=== PATIENT | male | born 1935 | race Caucasian/White ===

== ENCOUNTER 2017-10-23 06:40 | Inpatient (IN) | payer MEDICARE, BC ==
[2017-10-23] MEDS ORDERED: IPRATROPIUM/ALBUTEROL (0.5MG/3MG) NEB INH ONE (06:51)
[2017-10-23] MEDS ORDERED: METHYLPREDNISOLONE PF 125MG/VIAL IVP ONE (07:02)
[2017-10-23 07:04] LABS: INFLUENZA A POSITIVE (NEGATIVE); INFLUENZA B NEGATIVE (NEGATIVE)
[2017-10-23] MEDS ORDERED: ACETAMINOPHEN 325 MG TAB PO ONE (07:09)
[2017-10-23] MEDS ORDERED: OSTELTAMIVIR 75 MG CAP PO ONE (07:13)
--- NOTE | 2017-10-23 07:13 | Emergency Department Record ---
History of Present Illness - General Chief complaint: Flu Like Symptoms Stated complaint: FLU LIKE SYMPTOMS Time Seen by Provider: 10/23/17 07:02 Source: Patient Mode of Arrival: Ambulatory - History of Present Illness Initial comments: The patient has had 3 days of a bad cough and loose/diarrhea stools. He has a fever and FAB/SOB and has dyspnea He vomited once earlier this morning, and took tylenol around 2 a.m. for his fever. He has chronic atrial fibrillationfor which he takes HCTZ, sotalol and xaralto. Onset/Timin -: Days(s) Location: Generalized Severity: Mild Consistency: Constant Improves with: None Worsens with: None Associated Symptoms: Fever/chills, Nausea/vomiting - Jose J Coma Scale Eye Response: (4) Open spontaneously Motor Response: (6) Obeys commands Verbal Response: (5) Oriented Jose J Total: 15 - Related Data Home Medications Medication Instructions Recorded Confirmed Last Taken Hydrochlorothiazide [Hctz] 1 tab PO DAILY 10/23/17 10/23/17 Unknown Rivaroxaban [Xarelto] 1 mg PO DAILY 10/23/17 10/23/17 Unknown Sotalol HCl [Sotalol] 1 tab PO DAILY 10/23/17 10/23/17 Unknown Allergies Allergy/AdvReac Type Severity Reaction Status Date / Time No Known Drug Allergies Allergy Verified 10/23/17 06:51 Travel Screening - Travel/Exposure Within Last 30 Days Have you traveled within the last 30 days?: No - Travel/Exposure Within Last Year Have you traveled outside the [place] in the last year?: No - Additonal Travel Details Have you been exposed to anyone with a communicable illness?: No - Travel Symptoms Symptom Screening: None Past Medical History - SOCIAL HISTORY Smoking Status: Never smoker Alcohol Use: None Drug Use: None - RESPIRATORY Hx Respiratory Disorders: No - CARDIOVASCULAR Hx Cardio Disorders: Yes Hx Hypertension: Yes Comment:: a-fib - NEURO Hx Neuro Disorders: No - GI Hx GI Disorders: No - Hx Genitourinary Disorders: No - ENDOCRINE Hx Endocrine Disorders: No - MUSCULOSKELETAL Hx Musculoskeletal Disorders: No - PSYCH Hx Psych Problems: No - HEMATOLOGY/ONCOLOGY Hx Hematology/Oncology Disorders: No Hx Cancer: Yes (skin) Hx Chemotherapy: No Hx Radiation Therapy: No Family Medical History Any Significant Family History?: No Physical Exam - General General Appearance: Alert, Oriented x3, Cooperative, Moderate distress - Head Head exam: Normal inspection - Eye Eye exam: Normal appearance, PERRL, EOMI Pupils: Normal accommodation - ENT ENT exam: Normal exam, Mucous membranes moist, Normal external ear exam, Normal orophraynx, TM's normal bilaterally Ear exam: Normal external inspection. negative: External canal tenderness Nasal Exam: Normal inspection, Discharge (nasal drainage present). negative: Sinus tenderness Mouth exam: Normal external inspection, Tongue normal Teeth exam: Normal inspection. negative: Dental caries Throat exam: Normal inspection. negative: Tonsillar erythema, Tonsillar exudate - Neck Neck exam: Normal inspection, Full ROM. negative: Lymphadenopathy, Meningismus , Tenderness - Respiratory Respiratory exam: Decreased breath sounds, Prolonged expiratory, Respiratory distress, Wheezes (expiratory) - Cardiovascular Cardiovascular Exam: Normal heart sounds, Irregular rhythm, Tachycardia - GI/Abdominal GI/Abdominal exam: Soft. negative: Tenderness - Rectal Rectal exam: Deferred - exam: Deferred - Extremities Extremities exam: Normal inspection, Full ROM, Normal capillary refill. negative: Calf tenderness, Pedal edema, Tenderness - Back Back exam: Reports: Normal inspection, Full ROM. Denies: CVA tenderness (R), CVA tenderness (L), Muscle spasm, Rash noted, Tenderness - Neurological Neurological exam: Alert, Normal gait, Oriented X3, Reflexes normal - Psychiatric Psychiatric exam: Normal affect, Normal mood - Skin Skin exam: Dry, Intact, Normal color, Warm Course Vital Signs 10/23/17 10/23/17 10/23/17 06:41 06:56 06:59 Temperature 99.2 F 100.1 F H Pulse Rate 116 H Pulse Rate [ 117 H 100 H Pulse Ox Probe] Respiratory 28 H 28 H 28 H Rate Blood Pressure 150/102 Pulse Ox 89 L 93 L 92 L - Reevaluation(s) Reevaluation #1: 10/23/17 07:29 Tightness decreased with nebulizer, as wheezing increased. Tachycardic rate of f a.fib on monitor Reevaluation #2: Patient is tachycardic at rest, has breathless speech, and arrived hypoxic. He is will to be admitted here. He states his PCP was Dr. Erazo, but he doesn' t know now who it i. 10/23/17 08:06 Reevaluation #3: DW Dr. Vazquez who accepts patient for full admission on telemetry. 10/23/17 08:20 Medical Decision Making - Management Options MDM Management: Additional Work-up Planned (e.g. ADM/Transfer/OP Study) ( Admission to Dr. Vazquez) - Data Complexity MDM Data: Labs Ordered and/or Reviewed, X-Ray Ordered and/or Reviewed (CXR shows mild streaky stelectasis RML with slight elevation of the righ hemidiaphragm per radiologist.), EKG Ordered and/or Reviewed - Lab Data Result diagrams: 10/23/17 06:55 10/23/17 06:55 - EKG Data -: EKG Interpreted by Me (atrial fibrillation, prsent on old EKG of at 127/ minute, wandering baseline) Disposition Disposition: Admit Clinical Impression: Pneumonia of right middle lobe due to influenza A virus, Chronic atrial fibrillation with rapid ventricular response Dyspnea Qualifiers: Dyspnea type: acute respiratory distress Qualified Code(s): R06.03 - Acute respiratory distress Disposition: Still a Patient at [facility] Decision to Admit: Admit from ER Decision to Admit Date: 10/23/17 Decision to Admit Time: 08:25 Accepting Physician: Dr. Vazquez Time Discussed w/Accepting Physician: 08:25 Condition: (3) Guarded Quality - Quality Measures Quality Measures: N/A - Blood Pressure Screening Does Patient Have Any of the Following: No, Active Dx of HTN Blood Pressure Classification: Hypertensive Reading Systolic Measurement: 150 Diastolic Measurement: 102 Screening for High Blood Pressure: Patient Exclusion, Hx of HTN [[id number]]
[2017-10-23 07:26] LABS: BLOOD UREA NITROGEN 15 mg/dL (8-23); CREATININE 1.2 mg/dL (0.7-1.2); EST GLOMERULAR FILTRATION RATE > 60 mL/min
[2017-10-23 07:27] LABS: TOTAL PROTEIN 7.7 g/dL (6.6-8.7)
[2017-10-23 07:29] LABS: GLUCOSE,RANDOM 106 mg/dL (74-109)
[2017-10-23 07:30] LABS: BASO % 0.5 % (0-6); EOS % 2.8 % (0-6); GRAN % 67.7 % (47-80); HEMATOCRIT 44.2 % (42.0-52.0); HEMOGLOBIN 15.2 gm/dl (14.0-18.0); LYMPH % 17.7 % (16-45); MEAN CELL VOLUME 83.4 fl (81-97); MEAN CORPUSCULAR HEMOGLOBIN 28.7 pg (27-33); MEAN CORPUSCULAR HGB CONC 34.4 g/dl (32-36); MEAN PLATELET VOLUME 9.7 fl (7.4-10.4); MONO % 11.3 % (0-9); PLATELET COUNT 228 K/uL (130-400); WHITE BLOOD COUNT W/O DIFF 5.8 K/uL (4.2-12.2)
[2017-10-23] MEDS ORDERED: 0.9 % SODIUM CHLORIDE 500ML 500 ML IV SCH (07:30)
[2017-10-23 07:32] LABS: ALB/GLOB RATIO 1.1 (1.1-1.8); ALBUMIN 4.1 g/dL (4.0-5.0); ALKALINE PHOSPHATASE 50 U/L (40-129); ALT/SGPT 20 U/L (<41); AST/SGOT 30 U/L (10.0-50.0)
[2017-10-23] MEDS ORDERED: SOTALOL HCL 80 MG TABLET PO SCH (08:15)
[2017-10-23] MEDS ORDERED: CEFTRIAXONE SODIUM 2 GM in 0.9 % SODIUM CHLORIDE 100ML 100 ML IVPB ONE (08:23)
[2017-10-23] MEDS ORDERED: AZITHROMYCIN 500 MG TABLET PO ONE (08:23)
--- NOTE | 2017-10-23 08:27 | RADIOLOGY REPORT ---
EXAM: CHEST, TWO VIEWS HISTORY: COUGH, CONGESTION AND DIFFICULTY IN BREATHING. TECHNIQUE: PA and lateral views of the chest were obtained. Comparison: Two view chest 05/03/10. FINDINGS: The heart size is within normal limits. There is some mild right middle lobe atelectasis or infiltrate with mild elevation of the right hemidiaphragm. The left lung appears expanded and clear. IMPRESSION: MILD STREAKY ATELECTASIS OR INFILTRATE RIGHT MIDDLE LOBE WITH MILD ELEVATION RIGHT HEMIDIAPHRAGM. JOB NUMBER: [id number] MTDD
[2017-10-23] MEDS ORDERED: ACETAMINOPHEN 500 MG TABLET PO PRN (09:01)
[2017-10-23] MEDS ORDERED: METHYLPREDNISOLONE PF 125MG/VIAL IVP SCH (09:01)
[2017-10-23] MEDS ORDERED: 0.9 % SODIUM CHLORIDE 1000ML 1,000 ML IV PRN (09:01)
[2017-10-23] MEDS ORDERED: CEFTRIAXONE SODIUM 1 GM in 0.9 % SODIUM CHLORIDE 100ML 100 ML IVPB SCH (09:01)
[2017-10-23] MEDS ORDERED: ALBUTEROL SULFATE (0.083%) 2.5 MG/3 ML NEB INH SCH (10:00)
[2017-10-23] MEDS ORDERED: RIVAROXABAN 15 MG TABLET PO SCH (10:00)
[2017-10-23] MEDS: HYDROCHLOROTHIAZIDE 12.5 MG CAPSULE PO SCH (10:05)
--- NOTE | 2017-10-23 10:31 | History & Physical ---
History of Present Illness - Date of Service Date of Service for History & Physical: 10/23/17 - History of Present Illness Admitting Diagnosis: Right middle lobe pneumonia; influenza A; dyspnea; chronic atrial fibrillation with rapid rate History of Present Illness: Mr. Vasquez is an 82 y/o male who presents with a 2 day history of chills, fatigue, cough, headache, loss of appetite and diarrhea. The patient says that his symptoms came on suddenly and his who he lives with has not had symptoms and there has not been any recent travel or other sick contacts. He has had is seasonal influenza vaccine and is up to date on his pneumococcal vaccination. On arrival to the ED the patient's influenza screen came back positive for influenza A and he was in atrial fibrillation with a rate of approximately 110-115. Chest xray reported atelectasis with possible right middle lobe infiltrate, however there is no white count or other SIRS criteria met. The patient was started on Tamiflu, antibiotics, IV steroids and fluids. He is admitted for hydration and further observation on cardiac monitoring. Travel Screening - Travel/Exposure Within Last 30 Days Have you traveled within the last 30 days?: No - Travel/Exposure Within Last Year Have you traveled outside the [place] in the last year?: No - Additonal Travel Details Have you been exposed to anyone with a communicable illness?: No - Travel Symptoms Symptom Screening: None Past Medical History - SOCIAL HISTORY Smoking Status: Never smoker Alcohol Use: None Drug Use: None - RESPIRATORY Hx Respiratory Disorders: No - CARDIOVASCULAR Hx Cardio Disorders: Yes Hx Hypertension: Yes Comment:: a-fib - NEURO Hx Neuro Disorders: No - GI Hx GI Disorders: No - Hx Genitourinary Disorders: No - ENDOCRINE Hx Endocrine Disorders: No - MUSCULOSKELETAL Hx Musculoskeletal Disorders: No - PSYCH Hx Psych Problems: No - HEMATOLOGY/ONCOLOGY Hx Hematology/Oncology Disorders: No Hx Cancer: Yes (skin) Hx Chemotherapy: No Hx Radiation Therapy: No Family Medical History Any Significant Family History?: No H&P Meds/Allergies - Allergies Allergies: Allergies Allergy/AdvReac Type Severity Reaction Status Date / Time No Known Drug Allergies Allergy Verified 10/23/17 06:51 - Home Medications Home Medications Medication Instructions Recorded Confirmed Last Taken Hydrochlorothiazide [Hctz] 12.5 mg PO DAILY 10/23/17 10/23/17 Unknown Rivaroxaban [Xarelto] 20 mg PO 1730 10/23/17 10/23/17 Unknown Sotalol HCl [Sotalol] 80 mg PO DAILY 10/23/17 10/23/17 Unknown Tamsulosin HCl [Flomax] 0.4 mg PO QHS 10/23/17 10/23/17 Unknown - Active Medications Active Medications: Current Medications Acetaminophen (Tylenol 500mg Tab) 1,000 mg PO Q6H PRN PRN Reason: PAIN/TEMP Albuterol Sulfate (Ventolin Hfa) 2 puff INH [facility]Q4H.[facility] Azithromycin (Zithromax) 500 mg PO DAILY [facility] Hydrochlorothiazide (Hctz 12.5mg) 12.5 mg PO DAILY [facility] Last Admin: 10/23/17 10:05 Dose: 12.5 mg Sodium Chloride () 1,000 mls @ 100 mls/hr IV .Q10H PRN PRN Reason: LARGE VOLUME IV Ceftriaxone Sodium 1 gm/ (Sodium Chloride) 100 mls @ 100 mls/hr IVPB Q24H [facility] Stop: 10/28/17 09:02 Methylprednisolone Sodium Succinate (Solu-Medrol) 60 mg IVP Q8H [facility] Rivaroxaban (Xarelto) 1 mg PO DAILY [facility] Last Admin: 10/23/17 10:05 Dose: Not Given Sotalol HCl (Betapace) mg PO DAILY [facility] Physical Exam - Vital Signs Vital Signs: Vital Signs - Last 24 Hrs Temp Pulse Pulse Resp BP BP Pulse Ox 10/23/17 09:05 99.1 F 119 H 112 H 18 117/64 124/83 95 - General General Appearance: Alert, Oriented x3, Cooperative, Moderate distress - Head Head exam: Normal inspection - Eye Eye exam: Normal appearance, PERRL, EOMI Pupils: Normal accommodation - ENT ENT exam: Normal exam, Mucous membranes moist, Normal external ear exam, Normal orophraynx, TM's normal bilaterally Ear exam: Normal external inspection. negative: External canal tenderness Nasal Exam: Normal inspection, Discharge (nasal drainage present). negative: Sinus tenderness Mouth exam: Normal external inspection, Tongue normal Teeth exam: Normal inspection. negative: Dental caries Throat exam: Normal inspection. negative: Tonsillar erythema, Tonsillar exudate - Neck Neck exam: Normal inspection, Full ROM. negative: Lymphadenopathy, Meningismus , Tenderness - Respiratory Respiratory exam: Decreased breath sounds, Prolonged expiratory, Respiratory distress, Rhonchi, Wheezes (expiratory) - Cardiovascular Cardiovascular Exam: Normal heart sounds, Irregular rhythm, Tachycardia Peripheral Pulses: 2+: Radial (R) (irregular ), Radial (L), Dorsalis Pedis (R), Dorsalis Pedis (L) - GI/Abdominal GI/Abdominal exam: Soft. negative: Tenderness - Rectal Rectal exam: Deferred - exam: Deferred - Extremities Extremities exam: Normal inspection, Full ROM, Normal capillary refill. negative: Calf tenderness, Pedal edema, Tenderness - Back Back exam: Reports: Normal inspection, Full ROM. Denies: CVA tenderness (R), CVA tenderness (L), Muscle spasm, Rash noted, Tenderness - Neurological Neurological exam: Alert, Normal gait, Oriented X3, Reflexes normal - Psychiatric Psychiatric exam: Normal affect, Normal mood - Skin Skin exam: Dry, Intact, Normal color, Warm Results - Labs Result Diagrams: 10/23/17 06:55 10/23/17 06:55 VTE H&P Assessment - Risk for VTE Risk for VTE: Yes Risk Level: Moderate Risk Assessment Date: 10/23/17 Risk Assessment Time: 10:40 VTE Orders Placed or Will Be Placed: Yes Plan - Inpatient Certification Inpatient Certification: Admit to inpatient care: Based on my medical assessment, after consideration of patient's risk factors (age, co-morbidities and patient presenting symptoms and acuity), I expect that this patient will remain in the hospital greater than or equal to two midnights and that the services needed warrant inpatient care because: Patient Risk Factors: Pneumonia, A. fib Estimated length of stay: The patient may reasonably be expected to be discharged or transferred to a hospital within 96 hours after admission to [facility]. I certify that my determination is in accordance with my understanding of Medicare requirements for reasonable and necessary inpatient services. 10/23/17 10:41 - Detailed Diagnosis and Plan (1) Pneumonia of right middle lobe due to influenza A virus Current Visit: Yes Status: Acute Base Code: J11.00 - FLU DUE TO UNIDENTIFIED FLU VIRUS W UNSP TYPE OF PNEUMONIA Comment: - influenza A positive, CXR reads streaky atelectasis w/ right middle lobe infiltrate. - WBCs 5, no fever, chills, + tachycardia, + wheezing, ronchi - cont tamiflu 75mg BID, IVF @ 100mL/hr, Tylenol PRN, supportive care,d/c antibiotics - contact/droplet precuations (2) Dyspnea Current Visit: Yes Status: Acute Qualifiers: Dyspnea type: acute respiratory distress Qualified Code(s): R06.03 - Acute respiratory distress Base Code: R06.00 - DYSPNEA, UNSPECIFIED Comment: - acute dyspnea as a result of pneumonia - cont respiratory therapy w/ albuterol q4H - d/c IV solumedrol, Prednisone 40mg daily - oxygen therapy PRN to keep sats > 92% (3) Chronic atrial fibrillation with rapid ventricular response Current Visit: Yes Status: Acute Base Code: I48.2 - CHRONIC ATRIAL FIBRILLATION Comment: - ECG: irregular R/R in the 120s, no acute ST-T changes noted. - resume home dose of Sotalol 80mg QD, increase to BID if not controlled, anticoagulation on Xarelto 20mg QD - cont cardic monitoring (4) Hypertension Current Visit: Yes Status: Acute Base Code: I10 - ESSENTIAL (PRIMARY) HYPERTENSION Comment: - controlled on HCTZ 12.5mg (5) DVT prophylaxis Current Visit: Yes Status: Acute Base Code: [id number] - Comment: - pt on therapeutic dosing of Xarelto (6) Full code status Current Visit: Yes Status: Acute Base Code: Z78.9 - OTHER SPECIFIED HEALTH STATUS Comment: - FULL CODE - Disposition Monitor overnight, likely d/c tomorrow if remains rate controlled and no desaturation.
[2017-10-23] MEDS: SOTALOL HCL 80 MG TABLET PO SCH (11:48)
[2017-10-23] MEDS ORDERED: PNEUM 23-VAL ADULT IM ONE (12:12)
[2017-10-23] MEDS: ALBUTEROL HFA 8 GM INHALER INH SCH ×3 (13:57→21:45)
[2017-10-23] MEDS: RIVAROXABAN 20 MG TABLET PO SCH (18:32)
[2017-10-23] MEDS: OSTELTAMIVIR 75 MG CAP PO SCH (21:19)
[2017-10-23] MEDS: TAMSULOSIN HCL 0.4 MG CAP.ER.24H PO SCH (21:19)
[2017-10-24] MEDS: ALBUTEROL HFA 8 GM INHALER INH SCH ×5 (05:25→22:14)
[2017-10-24] MEDS: PREDNISONE 20 MG TAB PO SCH (08:13)
[2017-10-24] MEDS ORDERED: AZITHROMYCIN 500 MG TABLET PO SCH (10:00)
[2017-10-24] MEDS: OSTELTAMIVIR 75 MG CAP PO SCH ×2 (10:32→21:22)
[2017-10-24] MEDS: HYDROCHLOROTHIAZIDE 12.5 MG CAPSULE PO SCH (10:32)
[2017-10-24] MEDS: SOTALOL HCL 80 MG TABLET PO SCH (10:32)
--- NOTE | 2017-10-24 10:45 | Physician Progress Note ---
Subjective - Date Date of Physician Progress Note: 10/24/17 - Subjective Subjective Comment: patient lying in bed with at bedside. states he feels better than yesterday. c/o gregory, though this has improved. denies fever, chills, n/v, heart palpitations, chest pain, dizziness or lightheadedness. ambulating to the bathroom. normal function. tolerating meals. Objective - Vital Signs Vital Signs: Vital Signs - Last 24 Hrs Temp Pulse Pulse Pulse Resp BP Pulse Ox 10/24/17 10:19 95 H 19 97 10/24/17 09:00 97.1 F L 102 H 97 H 18 140/87 94 L 10/24/17 05:25 78 18 92 L 10/23/17 21:45 80 20 96 10/23/17 21:00 18 10/23/17 18:12 95 10/23/17 18:10 111 H 17 97 10/23/17 17:01 98.1 F 85 18 118/77 95 10/23/17 14:28 112 H 18 10/23/17 13:58 113 H 17 95 - General General Appearance: Alert, Oriented x3, Cooperative, Mild distress - Head Head exam: Normal inspection - Eye Eye exam: Normal appearance, PERRL, EOMI Pupils: Normal accommodation - ENT ENT exam: Normal exam, Mucous membranes moist, Normal external ear exam, Normal orophraynx, TM's normal bilaterally Ear exam: Normal external inspection. negative: External canal tenderness Nasal Exam: Normal inspection, Discharge (nasal drainage present). negative: Sinus tenderness Mouth exam: Normal external inspection, Tongue normal Teeth exam: Normal inspection. negative: Dental caries Throat exam: Normal inspection. negative: Tonsillar erythema, Tonsillar exudate - Neck Neck exam: Normal inspection, Full ROM. negative: Lymphadenopathy, Meningismus , Tenderness - Respiratory Respiratory exam: Decreased breath sounds, Prolonged expiratory, Rhonchi, Wheezes (expiratory) - Cardiovascular Cardiovascular Exam: Normal heart sounds, Irregular rhythm, Tachycardia Peripheral Pulses: 2+: Radial (R) (irregular ), Radial (L), Dorsalis Pedis (R), Dorsalis Pedis (L) - GI/Abdominal GI/Abdominal exam: Soft. negative: Tenderness - Rectal Rectal exam: Deferred - exam: Deferred - Extremities Extremities exam: Normal inspection, Full ROM, Normal capillary refill. negative: Calf tenderness, Pedal edema, Tenderness - Back Back exam: Reports: Normal inspection, Full ROM. Denies: CVA tenderness (R), CVA tenderness (L), Muscle spasm, Rash noted, Tenderness - Neurological Neurological exam: Alert, Normal gait, Oriented X3, Reflexes normal - Psychiatric Psychiatric exam: Normal affect, Normal mood - Skin Skin exam: Dry, Intact, Normal color, Warm Assessment and Plan - Assessment and Plan (1) Pneumonia of right middle lobe due to influenza A virus Current Visit: Yes Status: Acute Base Code: J11.00 - FLU DUE TO UNIDENTIFIED FLU VIRUS W UNSP TYPE OF PNEUMONIA Comment: 10/24 - influenza A positive, CXR reads streaky atelectasis w/ right middle lobe infiltrate. - no fever, chills, + tachycardia, + wheezing, ronchi - cont tamiflu 75mg BID, IVF @ 100mL/hr, Tylenol PRN, supportive care - contact/droplet precuations (2) Chronic atrial fibrillation with rapid ventricular response Current Visit: Yes Status: Acute Base Code: I48.2 - CHRONIC ATRIAL FIBRILLATION Comment: 10/24 - ECG: irregular R/R in the 120s, no acute ST-T changes noted. Run of VTach at 3 :45 am on 10/24. patient asymptomatic during this episode. he denies any CP, heart palpitations, or lightheadedness. - resume home dose of Sotalol 80mg QD. Will hold off on increasing BB dose to BID as patient reports significant dizziness when this was done int he past. - Will consult Dr. Tran for the morning. - anticoagulation on Xarelto 20mg QD - cont cardic monitoring closely (3) Dyspnea Current Visit: Yes Status: Acute Qualifiers: Dyspnea type: acute respiratory distress Qualified Code(s): R06.03 - Acute respiratory distress Base Code: R06.00 - DYSPNEA, UNSPECIFIED Comment: 10/24 - acute dyspnea as a result of pneumonia - cont respiratory therapy w/ albuterol q4H - will add pep valve - Prednisone 40mg daily - oxygen therapy PRN to keep sats > 92% (4) Hypertension Current Visit: Yes Status: Acute Base Code: I10 - ESSENTIAL (PRIMARY) HYPERTENSION Comment: - controlled on HCTZ 12.5mg (5) DVT prophylaxis Current Visit: Yes Status: Acute Base Code: [id number] - Comment: 10/24- pt on therapeutic dosing of Xarelto (6) Full code status Current Visit: Yes Status: Acute Base Code: Z78.9 - OTHER SPECIFIED HEALTH STATUS Comment: 10/24- FULL CODE Results - Labs Result Diagrams: 10/23/17 06:55 10/23/17 06:55 DVT/PE Assessment - Risk for VTE Risk for VTE: No Risk Level: Moderate Risk Assessment Date: 10/23/17 Risk Assessment Time: 10:40 VTE Orders Placed or Will Be Placed: Yes - Active Medicaitons Current Medications: Current Medications Acetaminophen (Tylenol 500mg Tab) 1,000 mg PO Q6H PRN PRN Reason: PAIN/TEMP Last Admin: 10/23/17 14:56 Dose: 1,000 mg Albuterol Sulfate (Ventolin Hfa) 2 puff INH [facility]P.[facility]4H[facility] Last Admin: 10/24/17 10:19 Dose: 2 puff Hydrochlorothiazide (Hctz 12.5mg) 12.5 mg PO DAILY [facility] Last Admin: 10/24/17 10:32 Dose: 12.5 mg Sodium Chloride () 1,000 mls @ 100 mls/hr IV .Q10H PRN PRN Reason: LARGE VOLUME IV Last Admin: 10/23/17 19:00 Dose: 100 mls/hr Oseltamivir Phosphate (Tamiflu) 75 mg PO BID [facility] Stop: 10/27/17 22:01 Last Admin: 10/24/17 10:32 Dose: 75 mg Prednisone (Prednisone 20mg) 40 mg PO DAILYWM [facility] Last Admin: 10/24/17 08:13 Dose: 40 mg Rivaroxaban (Xarelto) 20 mg PO 1730 [facility] Last Admin: 10/23/17 18:32 Dose: 20 mg Sotalol HCl (Betapace) 80 mg PO DAILY [facility] Last Admin: 10/24/17 10:32 Dose: 80 mg Tamsulosin HCl (Flomax) 0.4 mg PO QHS [facility] Last Admin: 10/23/17 21:19 Dose: 0.4 mg AMI Plan - Labs Result Diagrams: 10/23/17 06:55 10/23/17 06:55
[2017-10-24] MEDS: RIVAROXABAN 20 MG TABLET PO SCH (19:40)
[2017-10-24] MEDS: TAMSULOSIN HCL 0.4 MG CAP.ER.24H PO SCH (21:22)
[2017-10-25] MEDS: ALBUTEROL HFA 8 GM INHALER INH SCH ×2 (06:01→09:37)
[2017-10-25] MEDS: PREDNISONE 20 MG TAB PO SCH (07:57)
[2017-10-25] MEDS: OSTELTAMIVIR 75 MG CAP PO SCH (09:23)
[2017-10-25] MEDS: HYDROCHLOROTHIAZIDE 12.5 MG CAPSULE PO SCH (09:23)
[2017-10-25] MEDS: SOTALOL HCL 80 MG TABLET PO SCH (09:26)
[2017-10-25] MEDS ORDERED: METOPROLOL TART 25 MG TABLET PO SCH (10:00)
--- NOTE | 2017-10-25 10:03 | Discharge Summary ---
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 lantigua Physical Exam - Vital Signs Vital Signs: Vital Signs - Last 24 Hrs Temp Pulse Pulse Pulse Resp BP BP 10/25/17 09:37 85 18 10/25/17 06:00 97.4 F L 82 18 141/92 10/24/17 22:00 139/83 10/24/17 21:30 98.2 F 70 84 18 153/105 10/24/17 21:00 70 84 18 10/24/17 14:11 10/24/17 14:10 89 17 10/24/17 10:19 95 H 19 Pulse Ox 10/25/17 09:37 95 10/25/17 06:00 93 L 10/24/17 22:00 10/24/17 21:30 93 L 10/24/17 21:00 10/24/17 14:11 95 10/24/17 14:10 97 10/24/17 10:19 97 - General General Appearance: Alert, Oriented x3, Cooperative, No acute distress - Head Head exam: Normal inspection - Eye Eye exam: Normal appearance, PERRL, EOMI Pupils: Normal accommodation - ENT ENT exam: Normal exam, Mucous membranes moist, Normal external ear exam, Normal orophraynx, TM's normal bilaterally Ear exam: Normal external inspection. negative: External canal tenderness Nasal Exam: Normal inspection, Discharge (nasal drainage present, clear). negative: Sinus tenderness Mouth exam: Normal external inspection, Tongue normal Teeth exam: Normal inspection. negative: Dental caries Throat exam: Normal inspection. negative: Tonsillar erythema, Tonsillar exudate - Neck Neck exam: Normal inspection, Full ROM. negative: Lymphadenopathy, Meningismus , Tenderness - Respiratory Respiratory exam: Decreased breath sounds, Prolonged expiratory, Rhonchi, Wheezes (expiratory, improving) - Cardiovascular Cardiovascular Exam: Normal heart sounds, Irregular rhythm, Tachycardia Peripheral Pulses: 2+: Radial (R) (irregular ), Radial (L), Dorsalis Pedis (R), Dorsalis Pedis (L) - GI/Abdominal GI/Abdominal exam: Soft. negative: Tenderness - Rectal Rectal exam: Deferred - exam: Deferred - Extremities Extremities exam: Normal inspection, Full ROM, Normal capillary refill. negative: Calf tenderness, Pedal edema, Tenderness - Back Back exam: Reports: Normal inspection, Full ROM. Denies: CVA tenderness (R), CVA tenderness (L), Muscle spasm, Rash noted, Tenderness - Neurological Neurological exam: Alert, Normal gait, Oriented X3, Reflexes normal - Psychiatric Psychiatric exam: Normal affect, Normal mood - Skin Skin exam: Dry, Intact, Normal color, Warm Hospitalization - Hospitalization Admission Diagnosis: Right middle lobe pneumonia; influenza A; dyspnea; chronic atrial fibrillation with rapid rate - Problem List/Discharge Diagnosis (1) Pneumonia of right middle lobe due to influenza A virus Current Visit: Yes Status: Acute Base Code: J11.00 - FLU DUE TO UNIDENTIFIED FLU VIRUS W UNSP TYPE OF PNEUMONIA Comment: 10/25 - influenza A positive, CXR reads streaky atelectasis w/ right middle lobe infiltrate. - no fever, chills, + tachycardia, + wheezing, ronchi - cont tamiflu 75mg BID until 10/27 Tylenol PRN, supportive care - educated patient on proper hand hygiene. - PNA vaccination prior to dc. (2) Chronic atrial fibrillation with rapid ventricular response Current Visit: Yes Status: Acute Base Code: I48.2 - CHRONIC ATRIAL FIBRILLATION Comment: 10/25 - ECG: irregular R/R in the 120s, no acute ST-T changes noted. Run of VTach at 3 :45 am on 10/24. patient asymptomatic during episode. - Evaluated by Dr. Lantigua who d/cd Sotalol and started patient on Metoprolol 25 mg BID - anticoagulation on Xarelto 20mg QD - pt denies cp, heart palpitations, dizziness or lightheadedness - fup with Dr. Lantigua Nov 10 at 10 am (3) Dyspnea Current Visit: Yes Status: Acute Discharge Diagnosis: Dyspnea type: acute respiratory distress Qualified Code(s): R06.03 - Acute respiratory distress Base Code: R06.00 - DYSPNEA, UNSPECIFIED Comment: 10/25 - acute dyspnea as a result of pneumonia - cont respiratory therapy w/ albuterol q4H & ventilatory pep valve - Prednisone 40mg daily - home O2 qualification completed- patient did not qualify for home O2 - PNA vaccination prior to d/c - CXR as outpatient - fup with nm Nov 06 @10:20 am. (4) Hypertension Current Visit: Yes Status: Acute Base Code: I10 - ESSENTIAL (PRIMARY) HYPERTENSION Comment: - controlled on HCTZ 12.5mg. Patient will also be on Metoprolol 25 mg BID (5) Full code status Current Visit: Yes Status: Acute Base Code: Z78.9 - OTHER SPECIFIED HEALTH STATUS Comment: 10/25- FULL CODE - Hospitalization Course Disposition: Home, Self-Care Hospital Course: Mr. Vasquez is an 82 y/o male who presents with a 2 day history of chills, fatigue, cough, headache, loss of appetite and diarrhea. The patient says that his symptoms came on suddenly and his who he lives with has not had symptoms and there has not been any recent travel or other sick contacts. He has had is seasonal influenza vaccine and is up to date on his pneumococcal vaccination. On arrival to the ED the patient's influenza screen came back positive for influenza A and he was in atrial fibrillation with a rate of approximately 110-115. Chest xray reported atelectasis with possible right middle lobe infiltrate, however there is no white count or other SIRS criteria met. The patient was started on Tamiflu, antibiotics, IV steroids and fluids. He is admitted for hydration and further observation on cardiac monitoring. 10/24- Run of ventricular tach around 3:45. patient reports feeling asymptomatic during this time. 10/25- patient sitting up in bed with his at bedside. states he's feeling much better and would like to go home. he denies any fever, chills, body aches , heart palpitations, chest pain, dizziness, or lightheadedness. ambulating to the restroom. tolerating meals. Condition at Discharge: (1) Good Discharge Medications - Discharge Medications Prescriptions: Albuterol Sulfate [Ventolin Hfa] 2 puff INH RESP.Q4H.WA #1 inhaler Metoprolol Tartrate [Lopressor] 25 mg PO BID #60 tab Oseltamivir Phosphate [Tamiflu] 75 mg PO BID #5 capsule Prednisone [Prednisone 20Mg] 40 mg PO DAILYWM #5 tab Home Medications: Ambulatory Orders Hydrochlorothiazide [Hctz] 12.5 mg PO DAILY 10/23/17 [Last Taken Unknown] Rivaroxaban [Xarelto] 20 mg PO 1730 10/23/17 [Last Taken Unknown] Tamsulosin HCl [Flomax] 0.4 mg PO QHS 10/23/17 [Last Taken Unknown] Albuterol Sulfate [Ventolin Hfa] 2 puff INH RESP.Q4H.WA #1 inhaler 10/25/17 [ Last Taken Unknown] Metoprolol Tartrate [Lopressor] 25 mg PO BID #60 tab 10/25/17 [Last Taken Unknown] Oseltamivir Phosphate [Tamiflu] 75 mg PO BID #5 capsule 10/25/17 [Last Taken Unknown] Prednisone [Prednisone 20Mg] 40 mg PO DAILYWM #5 tab 10/25/17 [Last Taken Unknown] Discharge Plan - Discharge Instructions Activity at Discharge: Increase Activity as Tolerated Diet at Discharge: Regular Diet Additional Instructions: Continue current therapy: Prednisone (steroid) 40 mg daily until gone Tamiflu twice daily until gone albuterol inhaler 1-2 puffs every 4 hours New heart medication: Metoprolol 25 mg twice daily. YOURE NO LONGER TAKING SOTALOL (Betapace) Please get repeat chest xray prior within one week. Follow up visits: [facility]- November 06 at 10:[address] Lantigua- November 10 at 10 am Please return re any new or worsening symptoms (i.e increased work of breathing , worsening fever, chills, lightheadedness, dizziness, chest discomfort or heart palpitations). Quality Measures - Quality Measures Quality Measures: Atrial Fibrillation & Atrial Flutter: Chronic Anticoagulation Therapy, Advance Directives, Documentation of Current Medications in Medical Record, Elder Maltreatment Screen and Follow-Up Plan, Screening for High Blood Pressure and F/U Documented - Current Medications Quality Measure: Measure #130: Documentation of Current Medications Documentation of Current Medications: <Current Medications Documented/Reviewed> [G8427] - Blood Pressure Screening Quality Measure: Screening for High Blood Pressure and Follow-Up Documented Does Patient Have Any of the Following: Active Dx of HTN Blood Pressure Classification: Normal BP Reading Systolic Measurement: 117 Diastolic Measurement: 64 Screening for High Blood Pressure: Patient Exclusion, Hx of HTN [G9744] - Atrial Fibrillation and Atrial Flutter Quality Measure: Atrial Fibrillation & Atrial Flutter: Chronic Anticoagulation Therapy Does Patient Have Any of the Following: No CHADS2 Risk Stratification: Age 75 or Greater, Hypertension Risk Stratification Summary: One or more high risk factors OR more than one moderate risk factor exists. [G8972] Anticoagulation Therapy: <Oral anticoagulant Prescribed> [B5787] - Advance Directives Quality Measure: Measure #47: Care Plan Advance Directives Established: No Advance Directives Information Provided To Patient: Yes Advance Directives on File: No Living Will: No Power of Metal Flooring Installer: No Advance Care Planning: <Care Plan/Decision Maker Documented; Discussed & Documented> [1833F] - Elder Abuse Suspicion Index Screening: Elder Abuse Suspicion Index Screening Rely on people for bathing, dressing, shopping, banking, etc: No Prevented from getting food, clothes, medication, etc: No Made to feel shamed or threatened by someone: No Forced to sign papers or use money against will: No Feel afraid, touched in ways not wanted or hurt physically: No Poor eye contact, withdrawn, malnourished, cuts or bruises: No Screening Result: Negative result EASI Reference Information: Jose RIVERA, Sylwia C, Emmie D, Shantelle M.Development and validation of a tool to assist physicians identification of elder abuse: The Elder Abuse Suspicion Index (EASI ). Journal of Elder Abuse and Neglect, 2008; 20 (3): 276-300. - Elder Maltreatment Screen Quality Measures: Elder Maltreatment Screen and Follow-Up Plan Elder Maltreatment Screen: <Negative, No Follow-Up Plan Required> [Q6915]
--- NOTE | 2017-10-25 12:50 | Medical Records Consult ---
DATE OF CONSULTATION: 10/25/2017 REASON FOR CONSULTATION: I was asked to see the patient for evaluation of cardiac status. CHIEF COMPLAINT: Atrial fibrillation. HISTORY: He has a history of chronic atrial fibrillation on rate control, anticoagulation for his cardiac diagnosis. He presented to the Emergency Room with a 2-day history of chills, fatigue, cough, headaches, loss of appetite, and diarrhea. Was diagnosed with influenza A. Admitted for antibiotics, Tamiflu, steroids, and fluids. He was quite ill when he came in. He was tachycardic. He had 1 brief run of 4-beat Vtach, which has not recurred. Denies any recent chest pain, PND or orthopnea. Denies any presyncope or syncope. Since admission, he has improved significantly. Still has cough. He has been on Betapace primarily for his rate control. Also has a history of hypertension. He had an echo done in July 2017, which showed normal LV function, mild biatrial enlargement with trace mitral insufficiency. There is no past history of known coronary artery disease. His last nuclear stress test was in 2010, which did not show any ischemia. PAST MEDICAL HISTORY: See HPI. SURGERIES: Cholecystectomy in 2000. He has a previous history of cardioversions, last being in 2003. ALLERGIES: None known. MEDICATIONS PRIOR TO ADMISSION: According to our office records, Xarelto 10 mg a day, sotalol 120 mg b.i.d., omeprazole 20 mg a day, hydrochlorothiazide 25 mg a day, Tamsulosin 0.4 mg a day, multiple vitamins. FAMILY HISTORY: Positive Parkinson's disease, fibromyalgia. SOCIAL HISTORY: Never smoked. Drinks caffeinated products. Denies alcohol use. REVIEW OF SYSTEMS: Ten-point review of systems reviewed and confirmed. Pertinent positives per HPI. Otherwise, negative. PHYSICAL EXAMINATION: VITAL SIGNS: Per nurse's notes. Reviewed and confirmed. GENERAL: A white male sitting up in bed. Oxygen in place. No acute distress. HEENT: Normocephalic. Atraumatic. Pupils equal, round, and reactive to light and accommodate. EOMs are intact. Lids, conjunctivae, and sclerae clear. Buccal mucosa is pink and moist. Uvula is midline without retraction. NECK: Supple. No thyromegaly or lymphadenopathy or carotid bruits. CHEST: Diffuse rhonchi and wheezing. No tenderness. CARDIOVASCULAR: Irregular irregular. Soft murmur at the apex. No gallops, lifts or heaves are noted. ABDOMEN: Soft. Nontender. EXTREMITIES: Pulses are 2+/4. No edema or cyanosis. NEUROLOGIC: No focal neurologic signs. Cranial nerves are intact. PSYCHIATRIC: Normal mood. IMPRESSIONS: 1. Influenza A with pneumonia. 2. Permanent atrial fibrillation on rate control and anticoagulation. 3. 4-beat run of nonsustained Vtach, probably related to influenza A with pneumonia. 4. Hypertension. ADDENDUM: I reviewed the patient's EKG. QT interval was normal. Shows atrial fibrillation. Troponins are negative. BMP is slightly elevated. PLAN: I think his primary problem is the influenza. Agree with current treatment of the latter. I would recommend discontinuing his Betapace on the outside chance it might be proarrhythmic. I put him on a beta viviana, metoprolol tartrate 25 mg p.o. b.i.d. Continue him on anticoagulation. Once his current influenza is resolved, will plan as stress test as an outpatient. If he has recurrent sustained ventricular tachycardia, may need to change treatment plan, but for now, I think he should stabilize on the current recommendations and current treatment. DELFINA
== END 2017-10-25 11:25 | disposition home or self-care (01) | DRG 195 ==
LOC: ER 06:40 → MEDSURG 08:49
PROVIDERS: ADMIT Internal Medicine; ATTEND Internal Medicine
DX: R05 Cough (principal); J11.00 Influenza due to unidentified influenza virus with unspecified type of pneumonia; R50.9 Fever, unspecified; R06.03 Acute respiratory distress; I48.2 Chronic atrial fibrillation; R06.02 Shortness of breath; Z79.01 Long term (current) use of anticoagulants; I10 Essential (primary) hypertension; R11.10 Vomiting, unspecified; R19.7 Diarrhea, unspecified
CPT/HCPCS: 71046; 80053; 83880; 84484; 85025; 85379; 87400; 90732; 93005; 93010; 93041; 94620; 94640; 94760; 94761; 96365; 96375; 99223; 99233; 99239; 99285; J2930; J7040; J7512